=== PATIENT | female | born 1990 | race Caucasian/White ===

== ENCOUNTER 2018-11-12 16:03 | Emergency (ER) | payer SELFPAY ==
[~2018-11-12] VITALS: Ht 172.7 cm; Wt 97.5 kg
[2018-11-12] MEDS ORDERED: HYDR-4226 PO (16:40)
[2018-11-12] MEDS ORDERED: PENI500T PO (16:40)
--- NOTE | 2018-11-12 16:48 | ED EENT ---
History of Present Illness General Chief Complaint: Dental Problems/Pain Stated Complaint: FACIAL SWELLING & PAIN LT SIDE Source: patient Exam Limitations: no limitations History of Present Illness Date Seen by Provider: November 12, 2018 Time Seen by Provider: 16:30 Initial Comments Patient is a 28-year-old female presents with left lower mandible pain, tenderness and dental fracture. Symptoms began several days ago. Patient does not appear able to schedule appointment for dentist and is currently awaiting dental insurance from the state. No dysphonia, drooling or dysphagia. No trismus. No other symptoms or complaints. Timing/Duration: gradual Location: dental Prearrival Treatment: over the counter meds Modifying Factors: Improves With Other (heating) Allergies and Home Medications Allergies Coded Allergies: morphine (Verified Allergy, Unknown, 11/12/18) Home Medications Hydrocodone/Acetaminophen 1 Each Tablet, 1 TAB PO Q4-6HR Prescribed by: SKYE GEORGE on 11/12/18 1640 Penicillin V Potassium 500 Mg Tablet, 500 MG PO QID Prescribed by: SKYE GEORGE on 11/12/18 1640 Patient Home Medication List Home Medication List Reviewed: Yes Review of Systems Review of Systems Constitutional: see HPI Eyes: See HPI Ears: See HPI Nose: see HPI Mouth: see HPI Throat: see HPI Respiratory: see HPI Past Eojrsjy-Bbxcts-Iteuny Hx Past Med/Social Hx: Reviewed Nursing Past Med/Soc Hx Patient Social History Recent Foreign Travel: No Contact w/Someone Who Travel: No Physical Exam Height, Weight, BMI Height: '" Weight: lbs. oz. kg; BMI Method: General Appearance: WD/WN Eyes: bilateral eye normal inspection, bilateral eye PERRL, bilateral eye EOMI , bilateral eye abnormal EOM Ears: bilateral ear auricle normal, bilateral ear canal normal Nose: normal inspection Mouth/Throat: dental tenderness, other (left lower bicuspid erision with fx and tenderness, draining abscess, minimal surrounding gingivitis.) Neck: non-tender, full range of motion Departure Communication (Admissions) Antibiotic and pain medication prescribed. Recommend dental follow-up is as soon as possible. Impression Primary Impression: Dental caries Disposition: HOME, SELF-CARE Condition: Stable Departure-Patient Inst. Decision time for Depature: 16:48 Patient Instructions: Fractured Tooth (DC) Add. Discharge Instructions: Take ibuprofen for pain and antibiotics and pain medication as prescribed. Follow-up with local dentist as soon as possible. All discharge instructions reviewed with patient and/or family. Voiced understanding. Scripts Penicillin V Potassium (Penicillin V Potassium) 500 Mg Tablet 500 MG PO QID, #40 TAB Prov: SKYE GEORGE DO 11/12/18 Hydrocodone/Acetaminophen ([place] 5-325 Tablet) 1 Each Tablet 1 TAB PO Q4-6HR for Pain MDD 10 TABS for 7 Days, #10 TAB Prov: SKYE GEORGE DO 11/12/18 SKYE GEORGE DO November 12, 2018 16:48
[2018-11-12 16:49] VITALS: BP 149/92
== END 2018-11-12 16:49 | disposition home or self-care (01) ==
LOC: ER FS 16:05
DX: K02.9 Dental caries, unspecified (principal); Z88.5 Allergy status to narcotic agent
CPT/HCPCS: 99282